=== PATIENT | male | born 1975 | race Caucasian/White ===

== ENCOUNTER 2019-05-12 08:17 | Emergency (ER) | payer OTHER ==
[~2019-05-12] VITALS: Ht 170.2 cm; Wt 104.5 kg
[2019-05-12] MEDS ORDERED: HYDROcodone/APAP 5/325 TABLET ONE (09:38)
[2019-05-12 09:48] VITALS: BP 157/97
[2019-05-12] MEDS ORDERED: HYDROcodone/APAP 5/325 TABLET PO ONE (10:00)
== END 2019-05-12 09:51 | disposition home or self-care (01) ==
LOC: ED 09:30
DX: S00.93XA Contusion of unspecified part of head, initial encounter (principal); S60.222A Contusion of left hand, initial encounter; W01.0XXA Fall on same level from slipping, tripping and stumbling without subsequent striking against object, initial encounter; Y93.89 Activity, other specified; Y92.89 Other specified places as the place of occurrence of the external cause; Y99.8 Other external cause status
CPT/HCPCS: 70450; 72125; 99284